=== PATIENT | female | born 1980 | race Caucasian/White ===

== ENCOUNTER → 2020-08-03 | Outpatient (CLI) | payer MEDICAID ==
[2020-08-03 08:51] LABS: HGB 13.5 gm/dL (11.4-16.0); MCHC 33.7 g/dL (31.0-37.0); MCV 92.1 fL (80.0-100.0); Platelet Count 222 k/uL (150-450); RBC 4.34 m/uL (3.80-5.40); RDW 12.3 % (11.5-15.5)
[2020-08-03 15:16] LABS: African American GFR (CKD) 92.7 (60.0-200.0); Albumin 4.5 g/dL (3.80-4.90); Albumin/Globulin Ratio 1.96 (1.60-3.17); Anion Gap 15.2 mmol/L (4.00-12.00); BUN/Creat Ratio 21.11 Ratio (12.00-20.00); Calcium 9.5 mg/dL (8.7-10.3); Carbon Dioxide 19.8 mmol/L (21.6-31.8); Chol/HDL Ratio 3.5; Globulin 2.3 g/dL (1.6-3.3); LDL Cholesterol,Calculated 116.2 mg/dL (0.0-131.0); Potassium 4.3 mmol/L (3.5-5.5); Total Bilirubin 0.5 mg/dL (0.2-1.2); Total Protein 6.8 g/dL (6.2-8.2); VLDL Calculation 13.8 mg/dL (5.00-40.00)
== END | disposition home or self-care (01) ==
LOC: LABWHC1 07:35
PROVIDERS: ATTEND Family Medicine
DX: Z00.00 Encounter for general adult medical examination without abnormal findings (principal)
CPT/HCPCS: 36415; 80053; 80061; 84443; 85027